=== PATIENT | female | born 1980 | race Caucasian/White ===

== ENCOUNTER 2018-04-25 16:21 | Emergency (ER) | payer MEDICAID ==
[2018-04-25 17:39] VITALS: BMI 29.2
--- NOTE | 2018-04-25 17:39 | ED PDOC ---
Arrival/HPI - General Time Seen by Provider: 04/25/18 16:32 Historian: Patient - History of Present Illness Narrative History of Present Illness (Text): 04/25/18 17:35 37yo female with no significant pmhx present with complaint of subjective fever, chills, external anterior neck pain with nausea whenever she swallows x 2weeks. States she took Ibuprofen yesterday, but became nauseous. +Headache described as pressure on top of her head. She denies nuchal ridigity, abdominal pain, rash, sick contact, dizziness, recent travel, focal weakness, dysphagia, hoarseness, any other complaint. Past Medical History - Provider Review Nursing Documentation Reviewed: Yes - Infectious Disease Hx of Infectious Diseases: None - Tetanus Immunization Tetanus Immunization: Unknown - Past Medical History Past Medical History: No Previous - Gastrointestinal Hx Gall Bladder Disease: Yes (Gallstones) - Psychiatric Hx Substance Use: No - Past Surgical History Past Surgical History: No Previous - Surgical History Hx Section: Yes (X2) - Anesthesia Hx Anesthesia: Yes Hx Anesthesia Reactions: No Hx Malignant Hyperthermia: No - Suicidal Assessment Feels Threatened In Home Enviroment: No Family/Social History - Physician Review Nursing Documentation Reviewed: Yes Family/Social History: Unknown Family HX Smoking Status: Never Smoked Hx Alcohol Use: No Hx Substance Use: No Hx Substance Use Treatment: No Allergies/Home Meds Allergies/Adverse Reactions: Allergies No Known Allergies Allergy (Verified 10/03/15 19:31) Review of Systems - Review of Systems Constitutional: Normal Eyes: Normal ENT: Normal Respiratory: Normal Cardiovascular: Normal Gastrointestinal: Nausea. absent: Abdominal Pain, Constipation, Diarrhea, Vomiting, Hematochezia, Hematemesis Genitourinary Female: Normal Musculoskeletal: Neck Pain Skin: Normal Neurological: Headache. absent: Dizziness, Focal Weakness, Gait Changes, Speech Changes, Facial Droop Endocrine: Normal Hemo/Lymphatic: Normal Psychiatric: Normal Physical Exam Vital Signs Reviewed: Yes Temperature: Febrile Blood Pressure: Normal Pulse: Tachycardic Respiratory Rate: Normal Appearance: Positive for: Well-Appearing, Non-Toxic, Comfortable Pain Distress: None Mental Status: Positive for: Alert and Oriented X 3 - Systems Exam Head: Present: Atraumatic, Normocephalic Pupils: Present: PERRL Extroacular Muscles: Present: EOMI Conjunctiva: Present: Normal Mouth: Present: Moist Mucous Membranes Pharnyx: Present: ERYTHEMA. No: EXUDATE, TONSILS ENLARGED, Peritonsilar Swelling, Uvular Deviation, Muffled/Hoarse Voice Neck: Present: Normal Range of Motion, Trachea Midline, Other (Neck is supple). No: Meningeal Signs Respiratory/Chest: Present: Clear to Auscultation, Good Air Exchange. No: Respiratory Distress, Accessory Muscle Use, Wheezes, Decreased Breath Sounds, Rales, Retracting, Rhonchi Cardiovascular: Present: Regular Rate and Rhythm, Normal S1, S2. No: Murmurs Abdomen: No: Tenderness, Distention, Peritoneal Signs Back: Present: Normal Inspection Upper Extremity: Present: Normal Inspection. No: Cyanosis, Edema Lower Extremity: Present: Normal Inspection. No: Edema Neurological: Present: GCS=15, CN II-XII Intact, Speech Normal, Motor Func Grossly Intact, Normal Sensory Function, Normal Cerebellar Funct, Norm Deep Tendon Reflexes, Gait Normal, Memory Normal, Other (No focal neurological deficit) Skin: Present: Warm, Dry, Normal Color. No: Rashes Psychiatric: Present: Alert, Oriented x 3, Normal Insight, Normal Concentration Medical Decision Making ED Course and Treatment: 04/25/18 22:25 PT presented to ED for stated history. She was controlling her secretions. No stridor. No drooling. Neck was supple. Labs was ordered and no leukocytosis noted. CT Head: BRAIN No acute intraparenchymal hemorrhage. No mass lesion. No CT evidence for acute territorial infarct. No midline shift or extra-axial collections. VENTRICLES: No hydrocephalus. ORBITS: The orbits are unremarkable. SINUSES AND MASTOIDS: Partial opacification of the sphenoid and frontal sinus. BONES: No fracture. SOFT TISSUES: Unremarkable. IMPRESSION: Partial opacification of the sphenoid and frontal sinus. Electronically signed on Apr 25, 2018 10:10:52 PM EST by: Frank Ventura M.D., Certified by [facility] CT Neck: nonvisualization of the nasopharynx, oropharyx, and hypopharynx. this is due to patient motion and the lack of contrast. LARYNX: Normal appearance of the larynx. Unremarkable epiglottis. RETROPHARYNGEAL SPACE: cannot evaluate SALIVARY GLANDS: Unremarkable appearance of the parotid, submandibular, and sublingual glands. LYMPH NODES: cannot adequately evaluate THYROID: The thyroid gland is unremarkable. No nodule is evident. BONES: No acute osseous abnormality. No aggressive appearing osseous lesion. MISCELLANEOUS: Severely limited study. Loculated intravenous contrast and patient motion results in nonvisualization of the pharynx IMPRESSION: Severely limited study.lack of intravenous contrast and patient motion results in nonvisualization of the pharynx and parapharyngeal soft tissues Electronically signed on Apr 25, 2018 10:20:30 PM EST by: Frank Ventura M.D., Certified by [facility] 04/26/18 00:51 Rapid flu negative Rap strep +Grp A Secondary to above CT resutl pt was treated with Augmentin for sinusitis and pharyngitis. Result was DW the pt and she was referred to her PMD/ENT TRT ED for any new or worsening symptoms - RAD Interpretation Blocklayer: Radiologist Disposition/Present on Arrival - Present on Arrival Any Indicators Present on Arrival: No History of DVT/PE: No History of Uncontrolled Diabetes: No Urinary Catheter: No History Surgical Site Infection Following: None - Disposition Have Diagnosis and Disposition been Completed?: Yes Diagnosis: Acute sinusitis, Acute pharyngitis Disposition: HOME/ ROUTINE Disposition Time: 23:10 Patient Plan: Discharge Condition: STABLE Discharge Instructions (ExitCare): Sinusitis, Adult (DC) Additional Instructions: Follow up with your Doctor/ENT Return to ED for any new or worsening symptoms Prescriptions: Amoxicillin/Clavulanate [Augmentin 875 MG-125 MG] 1 tab PO BID #20 tab RX: Ibuprofen [Motrin Tab] 600 mg PO Q6 #20 tab Ondansetron ODT [Zofran ODT] 4 mg PO Q6 #6 odt Referrals: Isabela Fontaine MD [Primary Care Provider] - Follow up with primary Lio Cooper DO [Staff Provider] - Follow up with primary Forms: [employer] (Indonesian)
[2018-04-25] MEDS ORDERED: Sodium Chloride 0.9% 1,000 ML IV STA (18:55)
[2018-04-25 19:37] LABS: BASO # 0.01 K/mm3 (0.0-2.0); BASO % 0.1 % (0.0-3.0); EOS % 0.4 % (1.5-5.0); GRAN # 6.77 (1.4-6.5); GRAN % 72.5 % (50.0-68.0); HEMOGLOBIN 11.6 g/dL (12.0-16.0); LYMPH % 20.9 % (22.0-35.0); MEAN CORPUSCULAR HEMOGLOBIN 25.9 pg (25.0-35.0); MEAN PLATELET VOLUME 9.7 fl (7.0-11.0); MONO # 0.6 (0.1-0.6); MONO % 6.1 % (1.0-6.0); RBC 4.48 10^6/uL (3.5-6.1); RED CELL DISTRIBUTION WIDTH 12.5 % (11.5-14.5); WHITE BLOOD COUNT 9.3 10^3/uL (4.5-11.0)
[2018-04-25 19:42] LABS: INR 1.3; PARTIAL THROMBOPLASTIN TIME 27.7 Seconds (25.1-36.5); PROTHROMBIN TIME 14.9 SECONDS (9.4-12.5)
[2018-04-25] MEDS ORDERED: Amoxicillin-Clav 875-125 mg Tab PO STA (22:52)
[2018-04-26 00:10] LABS: INFLUENZA A B NEGATIVE FOR FLU A/B (NEGATIVE)
[2018-04-26 00:46] VITALS: BP 118/67; PULSE 74; RESP 18; O2SAT 100
[2018-04-26 00:49] VITALS: TEMP 98.9
--- NOTE | 2018-04-26 09:15 | CT ---
Date of service: 04/25/2018 PROCEDURE: CT HEAD WITHOUT CONTRAST. HISTORY: headache COMPARISON: None available. TECHNIQUE: Axial computed tomography images were obtained through the head/brain without intravenous contrast. Radiation dose: Total exam DLP = 904.67 mGy-cm. This CT exam was performed using one or more of the following dose reduction techniques: Automated exposure control, adjustment of the mA and/or kV according to patient size, and/or use of iterative reconstruction technique. FINDINGS: HEMORRHAGE: No intracranial hemorrhage. BRAIN: No mass effect or edema. No atrophy or chronic microvascular ischemic changes. VENTRICLES: Unremarkable. No hydrocephalus. CALVARIUM: Unremarkable. PARANASAL SINUSES: Unremarkable as visualized. No significant inflammatory changes. MASTOID AIR CELLS: Unremarkable as visualized. No inflammatory changes. OTHER FINDINGS: None. IMPRESSION: Normal CT of the Head.
--- NOTE | 2018-04-26 09:24 | CT ---
Date of service: 04/25/2018 PROCEDURE: CT NECK WITHOUT CONTRAST HISTORY: throat pain COMPARISON: None available. TECHNIQUE: CT of the neck without intravenous contrast. Coronal and sagittal reformats generated. Radiation dose: Total exam DLP = 315.79 mGy-cm. This CT exam was performed using one or more of the following dose reduction techniques: Automated exposure control, adjustment of the mA and/or kV according to patient size, and/or use of iterative reconstruction technique. FINDINGS: NASOPHARYNX: Unremarkable. SUPRAHYOID NECK: Unremarkable oropharynx, oral cavity, parapharyngeal space and retropharyngeal space. INFRAHYOID NECK: Unremarkable larynx, hypopharynx, and supraglottic space. Vocal cords intact. MASS: None. GLANDS: Parotid and submandibular glands unremarkable. Normal size thyroid gland, without nodule. LYMPH NODES: Normal. No lymphadenopathy. CERVICAL SPINE: No fracture or focal lesion. OTHER FINDINGS: Severely limited lack intravenous contrast and patient motion artifact. IMPRESSION: Unremarkable non-contrast enhanced CT of the neck.Severely limited lack intravenous contrast and patient motion artifact.
== END 2018-04-25 23:55 | disposition home or self-care (01) ==
LOC: ED 16:21
DX: J02.9 Acute pharyngitis, unspecified (principal); J01.90 Acute sinusitis, unspecified
CPT/HCPCS: 70450; 70490; 85025; 85610; 85730; 87430; 87804; 96361; 96372; 96374; 99285; J1885; J7030